=== PATIENT | male | born 1985 | race American Indian/Alaskan Native ===

== ENCOUNTER → 2018-03-20 | Outpatient (CLI) | payer SELFPAY ==
--- NOTE | 2018-03-20 17:21 | RADIOLOGY IMAGING REPORT ---
FACILITY: [facility] PATIENT NAME: Eddie Lancaster : 1985 MR: [id number] V: [id number] EXAM DATE: ORDERING PHYSICIAN: ALAN SAWANT TECHNOLOGIST: Location: [facility] Patient: Eddie Lancaster : 1985 Visit/Account:[id number] Date of Sevice: 03/20/2018 Bilateral lower extremity duplex venous ultrasound Indication: Leg swelling Comparison: None Available Findings: Duplex Doppler and color flow imaging was performed. The bilateral common femoral, femoral , and popliteal veins are all patent and compressible with normal Doppler wave forms. There are norm al responses to augmentation. The proximal greater saphenous veins are also normal. Impression: 1. No evidence of deep venous thrombosis of the bilateral lower extremities. The provider's office has been made aware that the report is available by an Imaging Services Coordin ator on 03/20/2018 5:18 PM. Report Dictated By: Barry Mendez at 03/20/2018 5:16 PM Report E-Signed By: Barry Mendez at 03/20/2018 5:18 PM WSN:[id number]
== END ==
LOC: US 15:42
PROVIDERS: ATTEND Nurse Practitioner Family
DX: L53.9 Erythematous condition, unspecified (principal); M79.669 Pain in unspecified lower leg; R22.42 Localized swelling, mass and lump, left lower limb
CPT/HCPCS: 93970